=== PATIENT | male | born 1980 | race African-American/Black ===

== ENCOUNTER 2021-07-06 15:32 | Emergency (ER) | payer OTHER ==
[~2021-07-06] VITALS: Ht 160 cm; Wt 68.0 kg
== END 2021-07-06 20:03 | disposition home or self-care (01) ==
LOC: ED 15:32
DX: R19.7 Diarrhea, unspecified (principal); K62.5 Hemorrhage of anus and rectum
CPT/HCPCS: 74018; 80053; 83690; 83735; 85025; 99284-25; J7030

== ENCOUNTER 2021-08-07 17:02 | Emergency (ER) | payer OTHER ==
[~2021-08-07] VITALS: Ht 160 cm; Wt 68.0 kg
== END 2021-08-07 18:48 | disposition home or self-care (01) ==
LOC: ED 17:02
DX: M54.9 Dorsalgia, unspecified (principal)
CPT/HCPCS: 81001; 99284; A9270

== ENCOUNTER 2021-08-27 18:27 | Emergency (ER) | payer OTHER ==
[~2021-08-27] VITALS: Ht 160 cm; Wt 70.3 kg
--- OUTSIDE RECORDS SUMMARY | 2021-08-27 18:34 | XMS ---
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 Francine has no Care Guidelines for this patient. Zacarias VISIT COUNT (12 MO.) 3 [facility] TOTAL 3 NOTE: Visits indicate total known visits. ED/C VISIT TRACKING (12 MO.) [facility] COMPLAINT: - NAUSEA,VOMITING,FEVER 08/07/2021 17:02 [facility] [place] TYPE: Emergency COMPLAINT: - FLANK PAIN DIAGNOSES: - Dorsalgia, unspecified - Unspecified abdominal pain 07/06/2021 15:34 [facility] [place] TYPE: Emergency COMPLAINT: - RECTAL BLEEDING DIAGNOSES: - Diarrhea, unspecified - Hemorrhage of anus and rectum INPATIENT VISIT TRACKING (12 MO.) No inpatient visits to display in this time frame [email or web address]
[2021-08-27] MEDS ORDERED: ONDANSETRON ODT8 MG PO (19:33)
== END 2021-08-27 20:32 | disposition home or self-care (01) ==
LOC: ED 18:27
DX: U07.1 COVID-19 (principal)
CPT/HCPCS: 96374; 99283-25; A9270; J2405; J7030

== ENCOUNTER 2024-02-27 01:06 | Emergency (ER) | payer OTHER ==
[~2024-02-27] VITALS: Ht 160 cm; Wt 70.7 kg
[~2024-02-27 01:06] MED LIST: ONDANSETRON ODT8 MG PO
--- OUTSIDE RECORDS SUMMARY | 2024-02-27 01:09 | XMS ---
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 Zacarias VISIT COUNT (12 MO.) 1 [facility] [place] TOTAL 1 NOTE: Visits indicate total known visits. ED/UCC VISIT TRACKING (12 MO.) 02/27/2024 01:07 [facility] [place] TYPE: Emergency COMPLAINT: - MEDICATION REACTION INPATIENT VISIT TRACKING (12 MO.) No inpatient visits to display in this time frame [id number]
[2024-02-27] MEDS ORDERED: AMOX TR-K CLV1 EAC1 (01:24)
[2024-02-27] MEDS ORDERED: SULFAMETHOXAZO1 EAC1 (01:24)
[2024-02-27] MEDS ORDERED: DOXYCYCLINE HYCLATE 100 MG HOME.PACK PO ONE (01:30)
[2024-02-27 02:04] VITALS: BP 167/97
== END 2024-02-27 01:59 | disposition home or self-care (01) ==
LOC: ED 01:06
DX: L02.31 Cutaneous abscess of buttock (principal)
CPT/HCPCS: 99282; A9270

== ENCOUNTER 2024-07-14 12:16 | Emergency (ER) | payer OTHER ==
[~2024-07-14] VITALS: Ht 160 cm; Wt 70.0 kg
[~2024-07-14 12:16] MED LIST changes: +AMOX TR-K CLV1 EAC1; +SULFAMETHOXAZO1 EAC1
--- OUTSIDE RECORDS SUMMARY | 2024-07-14 12:18 | XMS ---
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 Zacarias VISIT COUNT (12 MO.) 2 [facility] [place] TOTAL 2 NOTE: Visits indicate total known visits. ED/UCC VISIT TRACKING (12 MO.) 07/14/2024 12:16 [facility] [place] TYPE: Emergency COMPLAINT: - DENTAL PAIN 02/27/2024 01:07 [facility] [place] TYPE: Emergency COMPLAINT: - MEDICATION REACTION DIAGNOSES: - Cutaneous abscess of buttock - Local infection of the skin and subcutaneous tissue, unspecified INPATIENT VISIT TRACKING (12 MO.) No inpatient visits to display in this time frame [email or web address]
[2024-07-14] MEDS ORDERED: CEPHALEXIN500 M1 PO (12:38)
[2024-07-14] MEDS ORDERED: NYSTATIN1 EAC6 TOP (12:38)
[2024-07-14] MEDS ORDERED: NAPROSYN500 MG PO (12:39)
[2024-07-14 13:00] VITALS: BP 159/100
== END 2024-07-14 13:01 | disposition home or self-care (01) ==
LOC: ED 12:16
DX: K08.89 Other specified disorders of teeth and supporting structures (principal); B35.3 Tinea pedis
CPT/HCPCS: 99282